=== PATIENT | female | born 1985 | race Two or more races ===

== ENCOUNTER → 2024-10-13 | Outpatient (CLI) | payer MEDICAID, SELFPAY ==
--- NOTE | 2024-10-13 09:58 | XR_ITS ---
Examination: Abdomen sonogram, complete Date and time of exam: October 13, 2024 1005 hours INDICATIONS: Right upper abdominal pain beginning 3 months ago, cholecystectomy. Technique: Multiple real-time grayscale transabdominal sonographic images of the abdomen have been obtained. Findings: Absent gallbladder Normal common bile duct 0.2 cm Pancreatic head 2.4 cm Aorta not enlarged. Liver 12.4 cm fatty liver. Normal hepatopedal portal venous flow Patent IVC Right kidney 9.1 cm cortex 1.2 cm Left kidney 8.5 cm cortex 1.8 cm Left renal cyst with internal echoes, irregular margins, 5.8 x 5.2 x 4.0 cm Spleen 10.4 cm IMPRESSION: Absent gallbladder Normal common duct Complex left renal cyst 5.8 x 5.2 x 4.0 cm Recommend MRI abdomen kidneys follow-up to further assess this complex left renal cyst
== END | disposition home or self-care (01) ==
LOC: CDIM 09:45
PROVIDERS: PCP Nurse Practitioner Family; Referring Provider Nurse Practitioner Family; Visit Provider Nurse Practitioner Family
DX: N28.1 Cyst of kidney, acquired (principal); Z90.49 Acquired absence of other specified parts of digestive tract
CPT/HCPCS: 76700

== ENCOUNTER → 2024-10-28 | Outpatient (CLI) | payer MEDICAID, SELFPAY | END | disposition home or self-care (01) | PROVIDERS: PCP Nurse Practitioner Family; Referring Provider Nurse Practitioner Family; Visit Provider Nurse Practitioner Family | DX: Z53.29 Procedure and treatment not carried out because of patient's decision for other reasons (principal) ==

== ENCOUNTER → 2025-04-08 | Outpatient (CLI) | payer MEDICAID, SELFPAY ==
--- NOTE | 2025-04-08 17:00 | XR_ITS ---
Examination: MRI abdomen with intravenous contrast Technique: Multiple axial and coronal MR images abdomen post intravenous administration 19 cc gadolinium Indications: Complex mass upper pole left kidney 4.5 cm: Noncontrast MRI kidneys the 2024 Date and time: April 08, 2025 1655 hrs., Comparison December 08, 2024 Findings: No abnormal enhancing liver or splenic lesions Cystic mass upper pole left kidney, 4.9 cm with mild wall thickening but without internal enhancement No tumor thrombus in the left renal vein or inferior vena cava No adenopathy No ascites Impression: Complex cystic mass upper pole left kidney with mild wall thickening, recommend CT-guided aspiration of this mass to exclude hypercellular cystic renal neoplasm
== END | disposition home or self-care (01) ==
PROVIDERS: PCP Nurse Practitioner Family; Referring Provider Nurse Practitioner Family; Visit Provider Nurse Practitioner Family
DX: N28.1 Cyst of kidney, acquired (principal)
CPT/HCPCS: 74182; A9577